=== PATIENT | male | born 1955 | race African-American/Black ===

== ENCOUNTER 2017-01-10 18:56 | Observation (INO) | payer OTHER, MEDICARE ==
[2017-01-10] MEDS ORDERED: ASPIRIN 81 MG TABLET, CHEWABLE PO ONE (19:05)
--- NOTE | 2017-01-10 19:34 | ER Document Report ---
ED Cardiac - General Chief Complaint: Chest Pain Stated Complaint: CHEST PAIN, UATSDIN PAIN Time Seen by Provider: 01/10/17 19:25 Notes: Patient is a 61 year old male that comes to the ED for chief complaint of chest pain. Patient reports that he has had chest pain almost everyday for the past week, today it worsened, started at 6 AM and resolved, then started again at dinnertime with radiations into his left neck and left shoulder. Patient denies current pain. He denies nausea, vomiting, shortness of breath. He states that he feels like he has a headache, he has pain along the left side of his head lateral to his eye, he states this is new to him. He denies injury, fever past medical history of. Hypertension, scoliosis with chronic back pain, cholecystectomy, he states he had a negative stress test many years ago, denies history of MD, denies smoking, denies family history of MD. TRAVEL OUTSIDE OF THE [place] IN LAST 30 DAYS: No - Related Data Allergies/Adverse Reactions: Sulfa (Sulfonamide Antibiotics) Allergy (Verified 07/21/14 21:14) Past Medical History - General Information source: Patient - Social History Smoking Status: Never Smoker Frequency of alcohol use: None Drug Abuse: None Lives with: Family Family History: Arthritis, DM, Hypertension, Malignancy Patient has suicidal ideation: No Patient has homicidal ideation: No - Past Medical History Cardiac Medical History: Reports: Hx Hypertension Endocrine Medical History: Reports: Hx Diabetes Mellitus Type 2 Renal/ Medical History: Denies: Hx Peritoneal Dialysis GI Medical History: Reports: Hx Gastritis Musculoskeltal Medical History: Reports Hx Arthritis, Reports Hx Musculoskeletal Trauma Past Surgical History: Reports: Hx Cholecystectomy, Hx Orthopedic Surgery - L knee - Immunizations Immunizations up to date: Yes Hx Diphtheria, Pertussis, Tetanus Vaccination: Yes Review of Systems - Review of Systems Constitutional: No symptoms reported EENT: No symptoms reported Cardiovascular: See HPI Respiratory: No symptoms reported Gastrointestinal: No symptoms reported Genitourinary: No symptoms reported Male Genitourinary: No symptoms reported Musculoskeletal: No symptoms reported Skin: No symptoms reported Hematologic/Lymphatic: No symptoms reported Neurological/Psychological: See HPI Physical Exam - Vital signs Vitals: Temp Pulse Resp BP Pulse Ox 98.3 F 103 H 18 155/89 H 97 01/10/17 19:14 01/10/17 19:14 01/10/17 19:14 01/10/17 19:14 01/10/17 19:14 Interpretation: Normal - General General appearance: Appears well, Alert In distress: None - HEENT Head: Normocephalic, Atraumatic Eyes: Normal Conjunctiva: Normal Extraocular movements intact: Yes Eyelashes: Normal Pupils: PERRL Mouth/Lips: Normal Pharynx: Normal Neck: Normal - Respiratory Respiratory status: No respiratory distress Chest status: Nontender. No: Tender Breath sounds: Normal. No: Decreased air movement, Nonproductive cough Chest palpation: Normal - Cardiovascular Rhythm: Regular. No: Tachycardia Heart sounds: Normal auscultation, S1 appreciated, S2 appreciated Murmur: No - Abdominal Inspection: Normal Distension: No distension Bowel sounds: Normal Tenderness: Nontender. No: Tender Organomegaly: No organomegaly - Back Back: Normal, Nontender. No: Tender - Extremities General upper extremity: Normal inspection, Nontender, Normal color, Normal ROM , Normal temperature General lower extremity: Normal inspection, Nontender, Normal color, Normal ROM , Normal temperature, Normal weight bearing. No: Lior's sign - Neurological Neuro grossly intact: Yes Cognition: Normal Orientation: AAOx4 Crystal Coma Scale Eye Opening: Spontaneous Crystal Coma Scale Verbal: Oriented [place] Coma Scale Motor: Obeys Commands Crystal Coma Scale Total: 15 Speech: Normal Motor strength normal: LUE, RUE, LLE, RLE Sensory: Normal - Psychological Associated symptoms: Normal affect, Normal mood - Skin Skin Temperature: Warm Skin Moisture: Dry Skin Color: Normal Course - Re-evaluation Re-evalutation: Patient reporting pain over the left latter day area with headache, ESR was checked to rule out temporal arteritis, this is normal, on reevaluation patient states the headache has resolved. EKG showing right bundle branch block, no T-wave inversions or ST segment changes in consecutive leads suggesting ischemia. Cardiac enzymes negative initially, CBC, chemistry generally unremarkable with mild hyperglycemia. On reevaluation the patient remains chest pain-free. Concerned because of patient's described symptom of pressure and chest with radiation to the neck and left shoulder in addition to history of hypertension, type 2 diabetes. Discussed with patient, discussed with Dr. Jensen, will discuss with Dr. Mcdonald for potential admission for telemetry observation. Discussed with Dr. Mcdonald, patient will be admitted to the hospital, patient states agreement with this plan. - Vital Signs Vital signs: Temp Pulse Resp BP Pulse Ox 97.7 F 72 16 144/80 H 100 01/11/17 03:05 01/11/17 03:05 01/11/17 03:05 01/11/17 03:05 01/11/17 03:05 - Laboratory Result Diagrams: 01/10/17 19:35 01/10/17 19:35 Laboratory results interpreted by me: 01/10/17 01/10/17 19:35 19:35 Hgb 12.8 L MCH 26.7 L Seg Neutrophils % 41.4 L Lymphocytes % 48.5 H Glucose 158 H Creatine Kinase 289 H Discharge - Discharge Clinical Impression: Chest pain Qualifiers: Chest pain type: unspecified Qualified Code(s): R07.9 - Chest pain, unspecified Disposition: ADMITTED OBSERVATION Admitting Provider: Hospitalist Unit Admitted: Telemetry
--- NOTE | 2017-01-10 20:06 | RADIOLOGY REPORT (SQ) ---
EXAM DESCRIPTION: CHEST SINGLE VIEW COMPLETED DATE/TIME: 01/10/2017 7:58 pm REASON FOR STUDY: cp COMPARISON: 08/02/2010. EXAM PARAMETERS: NUMBER OF VIEWS: One view. TECHNIQUE: Single frontal radiographic view of the chest acquired. RADIATION DOSE: NA LIMITATIONS: None. FINDINGS: LUNGS AND PLEURA: No opacities, masses or pneumothorax. No pleural effusion. MEDIASTINUM AND HILAR STRUCTURES: No masses. Contour normal. HEART AND VASCULAR STRUCTURES: Heart normal in size. Normal vasculature. BONES: No acute findings. HARDWARE: None in the chest. OTHER: No other significant finding. IMPRESSION: NO ACUTE RADIOGRAPHIC FINDING IN THE CHEST. TECHNICAL DOCUMENTATION: JOB ID: [id number]
[2017-01-10 20:15] LABS: ABSOLUTE EOSINOPHILS # (AUTO) 0.2 10^3/uL (0.0-0.6); ABSOLUTE MONOCYTES (AUTO) 0.6 10^3/uL (0.1-1.4); ABSOLUTE NEUT (AUTO) 3.4 10^3/uL (1.7-8.2); BASOPHILS % (AUTO) 0.4 % (0-2); EOSINOPHILS % (AUTO) 2.4 % (0-6); HEMATOCRIT 39.8 % (37.9-51.0); HEMOGLOBIN 12.8 g/dL (13.5-17.0); HGB HCT DIFFERENCE -1.4; LYMPHOCYTES % (AUTO) 48.5 % (13-45); MEAN CORPUSCULAR HEMOGLOBIN 26.7 pg (27.0-33.4); MEAN CORPUSCULAR HGB CONC 32.2 g/dL (32.0-36.0); MEAN CORPUSCULAR VOLUME 83 fl (80-97); MONOCYTES % (AUTO) 7.3 % (3-13); RED BLOOD COUNT 4.79 10^6/uL (4.35-5.55); RED CELL DISTRIBUTION WIDTH 12.7 % (11.5-14.0); SEGMENTED NEUTROPHILS % (AUTO) 41.4 % (42-78); WHITE BLOOD COUNT 8.2 10^3/uL (4.0-10.5)
[2017-01-10 20:20] LABS: PROTHROMBIN TIME 12.9 SEC (11.4-15.4)
[2017-01-10 20:25] LABS: ALANINE AMINOTRANSFERASE 40 U/L (21-72); ALBUMIN 4.2 g/dL (3.5-5.0); ALKALINE PHOSPHATASE 82 U/L (38-126); ANION GAP 12 (5-19); ASPARTATE AMINO TRANSFERASE 25 U/L (17-59); BILIRUBIN,DIRECT 0.2 mg/dL (0.0-0.4); BILIRUBIN,TOTAL 0.4 mg/dL (0.2-1.3); BLOOD UREA NITROGEN 16 mg/dL (7-20); CALCIUM 9.7 mg/dL (8.4-10.2); CARBON DIOXIDE 24 mmol/L (22-30); CHLORIDE 104 mmol/L (98-107); CREATINE KINASE 289 U/L (55-170); CREATININE RESULT 0.99 mg/dL (0.52-1.25); GLUCOSE 158 mg/dL (75-110); LIPASE 78.8 U/L (23-300); MAGNESIUM 1.7 mg/dL (1.6-2.3); SODIUM 139.6 mmol/L (137-145)
[2017-01-10 20:37] LABS: CREATINE KINASE MB 2.34 ng/mL (<4.55)
[2017-01-10 20:38] LABS: TROPONIN I < 0.012 ng/mL
[2017-01-10 20:51] LABS: ERYTHROCYTE SEDIMENTATION RATE 7 mm/hr (0-20)
[2017-01-10] MEDS ORDERED: MORPHINE SULFATE 10 MG/ML INJ IV ONE (21:13)
[2017-01-10] MEDS ORDERED: ONDANSETRON HCL INJ/PF 4 MG/2 ML SDV IV ONE (21:13)
--- NOTE | 2017-01-10 21:41 | EKG REPORT ---
SEVERITY:- ABNORMAL ECG - SINUS RHYTHM SHAR, CONSIDER BIATRIAL ABNORMALITIES RIGHT BUNDLE BRANCH BLOCK : Confirmed by: Marika Garcia 10-Jan-2017 21:40:41
[2017-01-11] MEDS ORDERED: GLUCAGON,HUMAN RECOMB 1 MG INJ IM PRN (00:41)
[2017-01-11] MEDS ORDERED: DEXTROSE 40% GEL 15 GM TUBE PO PRN ×2 (00:41)
[2017-01-11] MEDS ORDERED: ACETAMINOPHEN 325 MG TABLET PO PRN (00:41)
[2017-01-11] MEDS ORDERED: INSULIN LISPRO 100 UNIT/ML 3 ML VIAL SUBCUT PRN (00:41)
[2017-01-11] MEDS ORDERED: DEXTROSE 50%-WATER 25 GM/50 ML DISP.SYRIN IV PRN ×2 (00:41)
[2017-01-11] MEDS ORDERED: MAG HYDROX/AL HYDROX/SIMETH SUSP 30 ML UDCUP PO PRN (03:04)
[2017-01-11] MEDS ORDERED: PROMETHAZINE HCL 25 MG TABLET PO PRN (03:11)
--- NOTE | 2017-01-11 04:36 | PDOC H&P ---
History of Present Illness Admission Date/PCP: 01/11/17 00:51 [place] Patient complains of: CHEST PAIN History of Present Illness: ENZO TINSLEY is a 61 year old -E[place]ian male with underlying hypertension, having been restarted on his medication by his physician 1 month ago after normalized blood pressure with weight loss, along with a history of diabetes mellitus, no longer on medication after a 50 pound weight loss, who presents to the emergency room for evaluation of above complaint. Patient has been discussed with emergency room physician who evaluated the patient. Patient describes a one-week history of daily episodes of substernal pressure- like chest discomfort radiating to his left neck and shoulder. Intermittent throughout the day. However, over the last 24 hours or so, there is now a sharp component and pain is more pronounced. Nothing in particular makes the pain worse or better. No associated nausea vomiting or shortness of breath. No previous myocardial infarction or congestive heart failure. No history of pulmonary embolus or DVT. No recent long trip with prolonged inactivity, or unusual lower extremity swelling or tenderness. Negative exercise treadmill study in the . Family history remarkable for a sister who of a myocardial infarction at 32 years of age. Also describes recurrence of his chronic headaches, usually at least 2 per week , which he thinks are at least partly secondary to herniated disc in his neck. Currently resting quietly, chest pain-free. Laboratory results are listed in [employer] and are reviewed. X-ray summary results are listed below, with full report(s) reviewed. . EKG reviewed. No prior EKG available for comparison. Social history/personal habits: . 2 children. Retired. No use of alcohol tobacco or illicit drugs. Allergies/adverse reactions are listed in [employer] and are reviewed. Home medications initially autopopulated into [employer] may not accurately reflect patient's true medications, dosages, and/or frequencies. 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 Unfortunately, patient not certain of all medications/dosages/frequencies. He did bring his blood pressure medication bottles, lisinopril 20 mg a day, and amlodipine 10 mg a day. REVIEW OF SYSTEMS: Constitutional: No fever or chills. Eyes: Wears glasses. ENT: No swallowing problems or complaints. Partial hearing loss. Pulmonary: No current complaints. Cardiovascular: See history and present illness. Gastrointestinal: No current complaints, including nausea or vomiting. Skin: No current complaints, including rashes. Hematologic: Easy bruising. Neurologic: See history and present illness. Musculoskeletal: Chronic joint pain from arthritis. Psychiatric: Anxiety and depression. Denies suicidal or homicidal ideation. Endocrine: No current complaints, including polyuria. Genitourinary: No current complaints, including dysuria. PHYSICAL EXAMINATION: 6 feet 5 inches tall. 128.6 kg. BMI 33.6 kg/m. Blood pressure 144/80. Pulse 72 and regular. Respirations are 16 and unlabored. 100% saturation on room air. Temperature 98.3. Somewhat obese but also somewhat stocky otherwise well-developed - [place] male appearing approximately his stated age. Pleasant awake alert and cooperative. Somewhat fatigued appearance. Perhaps mildly anxious, but no agitation. is present at his side; patient approves. Skin is warm and dry. No grossly obvious evidence of rash in areas of skin examined. No subcutaneous nodules palpated. ENT: Hearing grossly normal to normal conversation. Tongue midline on protrusion pink and slightly tacky. Eyes: No scleral icterus. Pupils equal and reactive to light at 4 mm. Villanueva conjunctivae. Neck is supple and nontender to gentle active range of motion and palpation. Midline trachea. No palpable thyroid nodule mass enlargement or tenderness. Lymphatic: No palpable cervical or clavicular nodes. Neck and lymphatic exams limited by patient body habitus. Psychiatric: Reasonable insight into acute and chronic medical issues. Oriented to time location and why here. Lungs: Auscultation reveals clear and equal breath sounds bilaterally. No use of accessory respiratory muscles. Cardiovascular: Heart regular rate and rhythm, without gallop murmur or rub. No carotid or abdominal aortic bruits. No ankle or pedal edema. Faintly palpable dorsalis pedis pulses. Abdomen:soft slightly obese nontender with positive bowel sounds. Unable to adequately evaluate abdomen for masses or organomegaly due to body habitus. Compression of neither his sternum nor upper abdomen reproduces his previously noted chest discomfort. Extremities: Feet are warm and dry. No calf tenderness to compression. No grossly obvious visual evidence of calf swelling. Gentle manipulation of lower extremities fails to reveal any obvious evidence of injury or instability to knees hips or ankles. Neurologic: Moves upper extremities grossly normally. Patellar reflexes absent. Absent Babinski. Light touch is intact at feet. Dorsiflexion and plantarflexion of feet 5 / 5 and symmetric. Past Medical History Cardiac Medical History: Reports: Hypertension Denies: Congestive Heart Failure, DVT, Myocardial Infarction, Hyperlipidema, Pulmonary Embolism Pulmonary Medical History: Reports: Sleep Apnea - Suspected sleep apnea; more tests are to be scheduled in the near future. Denies: Asthma, Chronic Obstructive Pulmonary Disease (COPD) EENT Medical History: Reports: Eyes - Glasses, Ears - Partial hearing loss Denies: Throat Neurological Medical History: Denies: Hemorrhagic CVA, Ischemic CVA, Seizures Endocrine Medical History: Reports: Diabetes Mellitus Type 2 - No longer on medication for same, after 50 pound weight loss. Denies: Diabetes Mellitus Type 1, Hyperthyroidism, Hypothyroidism Renal/ Medical History: Reports: None GI Medical History: Reports: Gastroesophageal Reflux Disease - Mild occasional Denies: Cirrhosis, Hepatitis, Peptic Ulcer Disease Musculoskeltal Medical History: Reports: Arthritis Skin Medical History: Reports: Eczema Psychiatric Medical History: Reports: Depression, General Anxiety Disorder Denies: Alcohol Dependency, Substance Abuse, Tobacco Dependency Hematology: Reports: Other - Easy bruising Infectious Medical History: Denies: Clostridium Difficile, Hepatitis B, Hepatitis C, Methicillin- Resistant Staph Aureus Past Surgical History Past Surgical History: Reports: Cholecystectomy, Orthopedic Surgery - Bilateral knee surgery, Other - Vasectomy Social History Information Source: Patient, Emergency Med Personnel, [facility] Records Lives with: Spouse/Significant other Smoking Status: Unknown if Ever Smoked Frequency of Alcohol Use: None Drugs: None - Advance Directive Resuscitation Status: Full Code Surrogate healthcare decision maker:: Family History Family History: Arthritis, DM, Hypertension, Malignancy Parental Family History Reviewed: Yes - Mother of stomach cancer; father of brain tumor. Children Family History Reviewed: Yes - Daughter with headaches. Sibling(s) Family History Reviewed.: Yes - 11 children; 6 surviving. Medication/Allergy Home Medications: Acetaminophen [Tylenol Arthritis 650 mg Tablet] 650 mg PO ASDIR PRN 01/11/17 Amlodipine Besylate [Norvasc 10 mg Tablet] 10 mg PO DAILY 01/11/17 Amlodipine Besylate [Norvasc 10 mg Tablet] 10 mg PO DAILY tablet 01/11/17 Aspirin [Ecotrin 81 mg EC Tablet] 81 mg PO DAILY tabec 01/11/17 Atorvastatin Calcium [Lipitor 20 mg Tablet] 20 mg PO QHS #30 tablet 01/11/17 Hydroxyzine Pamoate [Vistaril 25 mg Capsule] 100 mg PO QHS 01/11/17 Lansoprazole [Prevacid 30 mg Odt Tablet] 30 mg PO Q6AM tab 01/11/17 Lisinopril [Prinivil 10 mg Tablet] 20 mg PO DAILY tablet 01/11/17 Lisinopril [Prinivil] 20 mg PO DAILY 01/11/17 Allergies/Adverse Reactions: Sulfa (Sulfonamide Antibiotics) Allergy (Verified 07/21/14 21:14) Physical Exam Vital Signs: Temp Pulse Resp BP Pulse Ox 98.3 F 103 H 16 156/85 H 100 01/10/17 19:14 01/10/17 19:14 01/11/17 01:01 01/11/17 01:01 01/11/17 01:01 Results Impressions: Chest X-Ray 01/10/17 19:05 IMPRESSION: NO ACUTE RADIOGRAPHIC FINDING IN THE CHEST. Assessment & Plan - Diagnosis (1) Chest pain Qualifiers: Chest pain type: unspecified Qualified Code(s): R07.9 - Chest pain, unspecified Is this a current diagnosis for this admission?: YesPlan: Patient will be placed in observation bed under chest pain protocol. Patient understands to notify staff should chest pain recur. Serial troponin . Repeat EKG. lipid panel. I have strongly encouraged patient to be careful getting out of bed without notifying staff, to avoid a fall with injury. Knee high SCDs for DVT prophylaxis, along with subcu Lovenox. Impression and plans were discussed with patient and , both of whom concur. Time spent in evaluation and management of patient: 61 minutes. (2) HTN (hypertension) Qualifiers: Hypertension type: essential hypertension Qualified Code(s): I10 - Essential (primary) hypertension Is this a current diagnosis for this admission?: YesPlan: Resume home medications as appropriate once these have been determined and reviewed. (4) Headache Qualifiers: Headache type: unspecified Headache chronicity pattern: chronic headache Intractability: not intractable Qualified Code(s): R51 - Headache Is this a current diagnosis for this admission?: YesPlan: As needed Tylenol. (5) History of diabetes mellitus, type II Is this a current diagnosis for this admission?: YesPlan: Diabetic cardiac diet. Accu-Cheks with appropriate sliding scale coverage.
[2017-01-11] MEDS ORDERED: LANSOPRAZOLE 30 MG TAB.RAP.DR PO SCH (06:00)
[2017-01-11 06:51] LABS: Direct HDL 43 mg/dL (>40); TRIGLYCERIDES 256 mg/dL (<150)
[2017-01-11 07:01] LABS: DIRECT LDL 113 mg/dL (<100)
[2017-01-11 07:03] LABS: VLDL CHOLESTEROL 51.2 mg/dL (10-31)
[2017-01-11] MEDS ORDERED: LISINOPRIL 10 MG TABLET PO SCH (10:00)
[2017-01-11] MEDS ORDERED: ENOXAPARIN SODIUM INJ 40 MG/0.4 ML DISP.SYRIN SUBCUT SCH (10:00)
[2017-01-11] MEDS ORDERED: AMLODIPINE BESYLATE 10 MG TABLET PO SCH (10:00)
[2017-01-11] MEDS ORDERED: DOCUSATE SODIUM 100 MG CAPSULE PO SCH (10:00)
[2017-01-11] MEDS ORDERED: ASPIRIN 81 MG TABLET, ENT COATED PO SCH (10:00)
[2017-01-11 10:28] VITALS: BP 144/80
--- NOTE | 2017-01-11 14:09 | PDOC DISCHARGE SUMMARY ---
General - Admit/Disc Date/PCP Admission Date/Primary Care Provider: 01/11/17 03:04 BAY CASTELLON NP Discharge Date: 01/11/17 - Discharge Diagnosis (1) Chest pain Is this a current diagnosis for this admission?: YesSummary: atypical chest pain, no clear etiology, possibly related to poorly controlled hTN but most likely MSK it seems. he r/o'd for acute ischemia with neg enzymes and no acute ischemic changes on ecg though he does have RBBB its unclear of the chronicity. nevertheless, he is chest pain free without recurrence since his admission and would like to go home. his SANDY score is only 2 and HEART score 3 based on age, HTN, hyperlipidemia and nonspecific changes on ecg putting him in the low risk category. I recommend maximizing his Rx mgt and counseled regarding diet and lifestyle changes including low fat, low chol diet and aerobic exercise 3x week. he should start ASA for primary prevention, statin for his lipids, and continue home regimen for control of his BP checking 1-2/day and [facility] to optimize his regimen. consider change to beta marleni from ccb if possible for its cardioprotective effects. (2) HTN (hypertension) Is this a current diagnosis for this admission?: YesSummary: poorly controlled, goal is <125/85; treat as above (3) Headache Is this a current diagnosis for this admission?: YesSummary: chronic and cluster in nature, likely related to stress of the event. treat with tylenol and seek medical attention if worsens (4) Hyperlipidemia Is this a current diagnosis for this admission?: YesSummary: new; start statin - Additional Information Resuscitation Status: Full Code Discharge Diet: Cardiac Discharge Activity: Activity As Tolerated Home Medications: Acetaminophen [Tylenol Arthritis 650 mg Tablet] 650 mg PO ASDIR PRN 01/11/17 Amlodipine Besylate [Norvasc 10 mg Tablet] 10 mg PO DAILY 01/11/17 Amlodipine Besylate [Norvasc 10 mg Tablet] 10 mg PO DAILY tablet 01/11/17 Aspirin [Ecotrin 81 mg EC Tablet] 81 mg PO DAILY tabec 01/11/17 Atorvastatin Calcium [Lipitor 20 mg Tablet] 20 mg PO QHS #30 tablet 01/11/17 Hydroxyzine Pamoate [Vistaril 25 mg Capsule] 100 mg PO QHS 01/11/17 Lansoprazole [Prevacid 30 mg Odt Tablet] 30 mg PO Q6AM tab.[email or web address]. 01/11/17 Lisinopril [Prinivil 10 mg Tablet] 20 mg PO DAILY tablet 01/11/17 Lisinopril [Prinivil] 20 mg PO DAILY 01/11/17 History of Present Illness History of Present Illness: ENZO TINSLEY is a 61 year old male Hospital Course Hospital Course: ENZO TINSLEY is a 61 year old -[place] male with underlying hypertension, having been restarted on his medication by his physician 1 month ago after normalized blood pressure with weight loss, along with a history of diabetes mellitus, no longer on medication after a 50 pound weight loss, who presents to the emergency room for evaluation of above complaint. Patient describes a one-week history of daily episodes of substernal pressure-like chest discomfort radiating to his left neck and shoulder. Intermittent throughout the day. However, over the last 24 hours or so, there is now a sharp component and pain is more pronounced. Nothing in particular makes the pain worse or better. No associated nausea vomiting or shortness of breath. No previous myocardial infarction or congestive heart failure. No history of pulmonary embolus or DVT. No recent long trip with prolonged inactivity, or unusual lower extremity swelling or tenderness. Negative exercise treadmill study in the . Family history remarkable for a sister who of a myocardial infarction at 32 years of age. Also describes recurrence of his chronic headaches, usually at least 2 per week, which he thinks are at least partly secondary to herniated disks in his neck. Currently resting quietly, chest pain-free. admitted to the hospital and r/o'd for acute ischemia with negative enzymes and only RBBB on ecg, unclear chronicity. he was chest pain free throughout his hospitalization and wants to go home. His SANDY and HEART scores indicate low risk and discussed diet and lifestyle modifications and maximizing medical management including ASA for primary prevention. He should return to the ED for recurrent or escalating symptoms at which time he will need stress testing and cardio consult for further risk stratification. he is stable for d/c home at this time and expresses no concerns about going home. all questions asked and answered to he and his 's satisfaction, he seems satisfied with the care received here. Physical Exam Vital Signs: Temp Pulse Resp BP Pulse Ox 97.6 F 81 18 144/80 H 97 01/11/17 10:25 01/11/17 10:25 01/11/17 10:25 01/11/17 10:25 01/11/17 10:25 Intake & Output 01/10/17 01/11/17 01/12/17 06:59 06:59 06:59 Intake Total 0 Balance 0 Weight 123.7 kg General appearance: PRESENT: no acute distress, obese, well-developed, well- nourished Head exam: PRESENT: atraumatic, normocephalic, other - palpation over the temporal muscle and bone on left reproduces his MAHAN pain Eye exam: PRESENT: EOMI, PERRLA. ABSENT: conjunctival injection, nystagmus, scleral icterus Mouth exam: PRESENT: moist, neck supple Neck exam: PRESENT: full ROM. ABSENT: carotid bruit, JVD, meningismus, tenderness Respiratory exam: PRESENT: clear to auscultation samina. ABSENT: accessory muscle use Cardiovascular exam: PRESENT: RRR. ABSENT: systolic murmur Pulses: PRESENT: normal radial pulses GI/Abdominal exam: PRESENT: soft, other - no abd bruit Musculoskeletal exam: PRESENT: ambulatory, full ROM Neurological exam: PRESENT: alert, awake, oriented to person, oriented to place , oriented to time, oriented to situation Psychiatric exam: PRESENT: appropriate affect, normal mood Results Laboratory Results: 01/11/17 06:15 Triglycerides 256 H Cholesterol 206.40 H LDL Cholesterol Direct 113 H VLDL Cholesterol 51.2 H HDL Cholesterol 43 01/11/17 06:15 Troponin I < 0.012 Impressions: Chest X-Ray 01/10/17 19:05 IMPRESSION: NO ACUTE RADIOGRAPHIC FINDING IN THE CHEST. Qualifiers PATEINT BEING DISCHARGED WITH ANY OF THE FOLLOWING DIAGNOSIS?: No VTE patient discharged on overlapping Therapy?: No Reason(s) for not prescribing Overlap Therapy:: Not indicated Plan Discharge Plan: dc home and f/u with PCP in one week for BP ck and med titration; return to the ED for worsening symptoms Time Spent: Greater than 30 Minutes
== END 2017-01-11 11:03 | disposition home or self-care (01) ==
LOC: ER 18:56 → EH 01-11 00:51 → UNDOADMOB 01-11 00:51 → 4S 01-11 02:10 → EH 01-11 02:10 → 4S 01-11 03:04 → EH 01-11 03:04
PROVIDERS: ADMIT Family Medicine; ATTEND Family Medicine
DX: R07.89 Other chest pain (principal); I45.10 Unspecified right bundle-branch block; I10 Essential (primary) hypertension; E78.5 Hyperlipidemia, unspecified; G44.029 Chronic cluster headache, not intractable; E11.9 Type 2 diabetes mellitus without complications; M50.20 Other cervical disc displacement, unspecified cervical region; M19.90 Unspecified osteoarthritis, unspecified site; F41.1 Generalized anxiety disorder; F32.9 Major depressive disorder, single episode, unspecified; M41.9 Scoliosis, unspecified; Z79.899 Other long term (current) drug therapy; Z90.49 Acquired absence of other specified parts of digestive tract; Z82.49 Family history of ischemic heart disease and other diseases of the circulatory system; Z82.0 Family history of epilepsy and other diseases of the nervous system
CPT/HCPCS: 93005; 99285; 96374; 96375; 36415 ×2; 82553; 82962; 82550; 83690; 83735; 85025; 85652; 85610; 80053; 84484 ×2; 80061; 71010; 93010; G0378; J2270; J3490; J2405

== ENCOUNTER → 2018-01-07 | Outpatient (CLI) | payer OTHER ==
[~2018-01-07] MED LIST: DIAZEPAM 5 MG TABLET ONE
--- NOTE | 2018-01-07 13:28 | RADIOLOGY REPORT (SQ) ---
EXAM DESCRIPTION: MRI LUMBAR SPINE WITHOUT COMPLETED DATE/TIME: 01/07/2018 11:45 am REASON FOR STUDY: LOW BACK PAIN (M54.5) M54.5 LOW BACK PAIN COMPARISON: None. TECHNIQUE: Sagittal and Axial imaging includes T1, T2, STIR and gradient echo sequences. Coronal T2/ HASTE imaging. LIMITATIONS: None. FINDINGS: VISUALIZED UPPER ABDOMEN: Limited evaluation. No acute or suspicious findings suggested. SEGMENTATION: No transitional anatomy. The lowest well-developed disc space is labeled L5-S1. ALIGNMENT: Anatomic. VERTEBRAE: Intact. BONE MARROW: Fatty reactive vertebral body and peak changes at L5-S1 DISC SIGNAL: Decreased T2 weighted intervertebral disc signal from L3-4 through L5-S1. High-grade di sc space loss of height at L5-S1. POSTERIOR ELEMENTS: Generally intact. No pars defect evident. HARDWARE: None in the spine. CORD AND CONUS: Normal in size and signal intensity. Conus at the T12-L1 level. SOFT TISSUES: No aortic aneurysm seen. No bulky retroperitoneal adenopathy or mass. No paraspinal mas s or fluid. T11-12: Mild bilateral facet hypertrophy with mild bilateral foraminal narrowing. No central stenos is. T12-L1: Unremarkable L1-L2: Mild bilateral facet hypertrophy. No central or foraminal stenosis. L2-L3: Moderate bilateral facet hypertrophy. No central or foraminal stenosis. L3-L4: High-grade central canal stenosis results from broad diffuse posterior disc bulging and very b ulky bilateral facet and ligament hypertrophy. There is effacement of the CSF around the lumbar nerv e roots on axial T2 image 19 and sagittal image 9. Elsewhere at L3-4 there is moderate bilateral foraminal narrowing without exiting L3 nerve root impin gement. L4-L5: Broad diffuse posterior disc bulging and moderate bilateral facet and ligament hypertrophy. B orderline central canal narrowing best shown on axial T2 image 26. There is mild bilateral foraminal narrowing without exiting L4 nerve root impingement. L5-S1: No central stenosis. Moderate right, mild left foraminal narrowing from facet and uncovertebr al hypertrophy. SACRUM: Visualized upper sacrum intact. OTHER: No other significant findings. IMPRESSION: High-grade central canal stenosis at L3-4 TECHNICAL DOCUMENTATION: JOB ID: [id number] [employer]- All Rights Reserved Reading location - IP/workstation name: [email or web address]
== END ==
LOC: RAD 09:19
PROVIDERS: ATTEND Nurse Practitioner Family
DX: M54.5 Low back pain (principal)
CPT/HCPCS: 72148

== ENCOUNTER → 2019-05-04 | Outpatient (CLI) | payer OTHER ==
--- NOTE | 2019-05-05 15:06 | RADIOLOGY REPORT (SQ) ---
EXAM DESCRIPTION: MRI LT UPPER JOINT WITHOUT COMPLETED DATE/TIME: 05/04/2019 1:05 pm REASON FOR STUDY: BILATERAL SHOULDER PAIN M25.519 PAIN IN UNSPECIFIED SHOULDER COMPARISON: None. TECHNIQUE: Left shoulder images acquired and stored on PACS. Multiplanar imaging to include fat sens itive sequences such as T1, water sensitive sequences such as FST2/STIR, cartilage sensitive sequence s such as FSPD/gradient-echo sequences. LIMITATIONS: None. FINDINGS: BONE MARROW AND CORTEX: No worrisome bone lesions or marrow replacement. No occult fractur es. JOINT OR BURSAL EFFUSION: Physiologic joint space fluid. Trace fluid in the subacromial/ subdeltoid bursa GLENO-HUMERAL ARTICULATION: Advanced osteoarthritis with [id number] appearance and bony spurring. High-riding humeral head abuts the undersurface of the acromion through a chronic rotator cuff tear. ACROMION AND AC JOINT: Type 2 acromion with bulky acromioclavicular joint hypertrophy narrowing the subacromial space best shown on sagittal image 10 and coronal image 12 ROTATOR CUFF AND INTERVAL: Chronic appearing diffuse full-thickness tear throughout the supra and inf raspinatus tendons. Muscle atrophy on sagittal image 19. Distal subscapularis is thickened and high in signal from tendinopathy. No rotator interval tear. No rotator interval thickening to suggest adhesive capsulitis. LABRUM AND BICEPS LABRAL COMPLEX: Intra-articular long head biceps tendon is markedly thickened fro m tendinopathy. Superior labrum diffusely small from chronic degeneration. REMAINDER OF LABRUM AND IGHL : No gross tear or paralabral cyst formation. Labral evaluation is less than optimal without joint distention. No thickening of IGHL to suggest adhesive capsulitis. PERIARTICULAR AND ADJACENT SOFT TISSUES: No masses or abnormal nodes. OTHER: No other significant finding. IMPRESSION: Chronic rotator cuff tear Bulky acromioclavicular joint hypertrophy Intra-articular long head biceps tendinopathy TECHNICAL DOCUMENTATION: JOB ID: [id number]- All Rights Reserved Reading location - IP/workstation name: [email or web address]
--- NOTE | 2019-05-05 15:10 | RADIOLOGY REPORT (SQ) ---
EXAM DESCRIPTION: MRI RT UPPER JOINT WITHOUT COMPLETED DATE/TIME: 05/04/2019 1:05 pm REASON FOR STUDY: BILATERAL SHOULDER PAIN M25.519 PAIN IN UNSPECIFIED SHOULDER COMPARISON: None. TECHNIQUE: Right shoulder images acquired and stored on PACS. Multiplanar imaging to include fat sen sitive sequences such as T1, water sensitive sequences such as FST2/STIR, cartilage sensitive sequenc es such as FSPD/gradient-echo sequences. LIMITATIONS: None. FINDINGS: BONE MARROW AND CORTEX: No worrisome bone lesions or marrow replacement. No occult fractur es. JOINT OR BURSAL EFFUSION: Joint space fluid is present, communicating with the subacromial/subdeltoid bursa through a large defect in the rotator cuff GLENO-HUMERAL ARTICULATION: Advanced osteoarthritis right glenohumeral joint, with joint space narrow ing and bony spurring. ACROMION AND AC JOINT: Type 2 acromion with very bulky acromioclavicular joint hypertrophy on sagitta l image 13 and coronal image 10. Narrowing of the subacromial space with fluid in the subacromial/randolph bdeltoid bursa. ROTATOR CUFF AND INTERVAL: Diffuse full-thickness tear throughout the supra and infraspinatus tendons with muscle atrophy on sagittal image 19. Distal subscapularis tendon is markedly thickened. Rotator interval tear is present. LABRUM AND BICEPS LABRAL COMPLEX: Massive thickening of the intra-articular long head biceps tendon from tendinopathy on axial images 9-15. Diffusely small superior labrum from degeneration. No larg e para labral cysts. REMAINDER OF LABRUM AND IGHL : No gross tear or paralabral cyst formation. Labral evaluation is less than optimal without joint distention. No thickening of IGHL to suggest adhesive capsulitis. PERIARTICULAR AND ADJACENT SOFT TISSUES: No masses or abnormal nodes. OTHER: No other significant finding. IMPRESSION: Chronic full-thickness tear throughout the supra and infraspinatus tendons. Tendinopathy distal subscapularis tendon. Tendinopathy intra-articular long head biceps tendon. TECHNICAL DOCUMENTATION: JOB ID: [id number] [employer]- All Rights Reserved Reading location - IP/workstation name: [email or web address]
== END ==
LOC: RAD 10:06
PROVIDERS: ATTEND Nurse Practitioner Family
DX: M25.512 Pain in left shoulder (principal); M25.511 Pain in right shoulder

== ENCOUNTER 2019-11-20 01:36 | Emergency (ER) | payer OTHER ==
[2019-11-20] MEDS ORDERED: NORMAL SALINE 1000 ML 1,000 ML IV ONE ×2 (02:03→05:50)
[2019-11-20] MEDS ORDERED: MORPHINE SULFATE 10 MG/ML INJ IV ONE (02:03)
[2019-11-20] MEDS ORDERED: ONDANSETRON HCL INJ/PF 4 MG/2 ML SDV IV ONE (02:03)
--- NOTE | 2019-11-20 02:07 | ER Document Report ---
ED General - General Chief Complaint: Shortness Of Breath Stated Complaint: SHORTNESS OF BREATH Time Seen by Provider: 11/20/19 01:49 Primary Care Provider: ALBA NOGUEIRA FNP [Primary Care Provider] - 11/20/19 Notes: Patient is a 64-year-old male that comes to the emergency department for chief complaint of productive cough, painful cough, and coughing up small amount of blood. Patient also states that he keeps getting episodes where he is continuous hiccups. Patient is postop left rotator cuff repair at [place] last Saturday (1 week ago), he states he was discharged on Saturday with diagnosis of postop pneumonia and on azithromycin. He states that he purchased a nebulizer today because he was prescribed nebulized medication, he states that afterwards he had a productive cough and coughed up a large amount of mucus on 2 separate occasions, on the second occasion he states he saw some blood mixed in and he be came concerned. He does report some shortness of breath. He states he was told he had COPD by [place], he is a former smoker, he has never used nebulizers before today. He is on aspirin but not on a blood thinner. He denies history of pulmonary embolism. He denies chest pain other than the coughing episodes, he denies any concerns in regards to the shoulder, he takes oxycodone as needed for this. He denies any cardiac history including ND or CHF. He does have a history of hypertension and diabetes. TRAVEL OUTSIDE OF THE [place] IN LAST 30 DAYS: No - Related Data Allergies/Adverse Reactions: Sulfa (Sulfonamide Antibiotics) Allergy (Unknown, Verified 11/03/18 12:20) SKIN TEST REACTION Past Medical History - General Information source: Patient - Social History Smoking Status: Former Smoker Drug Abuse: None Lives with: Family Family History: Arthritis, DM, Hypertension, Malignancy - Past Medical History Cardiac Medical History: Reports: Hx Hypertension Denies: Hx Congestive Heart Failure, Hx DVT, Hx Heart Attack, Hx Hypercholesterolemia, Hx Pulmonary Embolism Pulmonary Medical History: Reports: Hx Sleep Apnea - Suspected sleep apnea; more tests are to be scheduled in the near future. Denies: Hx Asthma, Hx COPD Neurological Medical History: Denies: Hx Cerebrovascular Accident, Hx Seizures Endocrine Medical History: Reports: Hx Diabetes Mellitus Type 2 - No longer on medication for same, after 50 pound weight loss.. Denies: Hx Diabetes Mellitus Type 1, Hx Hyperthyroidism, Hx Hypothyroidism Renal/ Medical History: Denies: Hx Peritoneal Dialysis GI Medical History: Reports: Hx Gastritis, Hx Gastroesophageal Reflux Disease - Mild occasional. Denies: Hx Cirrhosis, Hx Hepatitis, Hx Hiatal Hernia, Hx Ulcer Musculoskeletal Medical History: Reports Hx Arthritis, Reports Hx Musculoskeletal Trauma Skin Medical History: Reports Hx Eczema Psychiatric Medical History: Reports: Hx Depression Infectious Medical History: Denies: Hx C-Diff, Hx Hepatitis, Hx MRSA Past Surgical History: Reports: Hx Cholecystectomy, Hx Orthopedic Surgery - Bi lateral knee surgery, Other - Vasectomy. Denies: Hx Open Heart Surgery, Hx Pacemaker - Immunizations Immunizations up to date: Yes Hx Diphtheria, Pertussis, Tetanus Vaccination: Yes Review of Systems - Review of Systems Constitutional: See HPI EENT: No symptoms reported Cardiovascular: See HPI Respiratory: See HPI Gastrointestinal: See HPI Genitourinary: No symptoms reported Male Genitourinary: No symptoms reported Musculoskeletal: See HPI Skin: No symptoms reported Hematologic/Lymphatic: No symptoms reported Neurological/Psychological: No symptoms reported Physical Exam - Vital signs Vitals: Temp Pulse Resp BP Pulse Ox 98.4 F 115 H 20 160/79 H 95 11/20/19 01:41 11/20/19 01:41 11/20/19 01:41 11/20/19 01:41 11/20/19 01:41 - Notes Notes: GENERAL: Alert, interacts well. HEAD: Normocephalic, atraumatic. EYES: Pupils equal, round, and reactive to light. Extraocular movements intact. ENT: Oral mucosa dry, tongue midline. Oropharynx unremarkable. Airway patent. NECK: Full range of motion. Supple. Trachea midline. No lymphadenopathy. LUNGS: Clear to auscultation bilaterally, no wheezes, rales, or rhonchi. No respiratory distress. Occasional episodes of coughing. HEART: Tachycardia, normal rhythm, no murmur ABDOMEN: Soft, non-tender. Non-distended. Intermittent episodes of hiccuping. EXTREMITIES: Shoulder immobilizer in place extending all the way up the arm, this is on the left arm/shoulder. Patient has full range of motion of the fingers, normal sensation and capillary fill, no noted swelling. Otherwise unremarkable. BACK: no cervical, thoracic, lumbar midline tenderness. No saddle anesthesia, normal distal neurovascular exam. Moves all extremities in full range of motion. NEUROLOGICAL: Alert and oriented x3. Normal speech. Cranial nerves II through XII grossly intact. Strength 5/5 in all extremities. PSYCH: Normal affect, normal mood. Course - Re-evaluation Re-evalutation: Patient has congested cough on exam intermittently, intermittently has hiccups. He also states that when he tries to eat something now he either starts coughing or hiccuping. Patient has clear lungs, no tachypnea, no hypoxia, he is borderline tachycardic. Chest x-ray shows possible left lower lobe atelectasis versus pneumonia. CBC shows leukocytosis at 17,000 with elevation of neutrophils but no bandemia. Chemistry nonspecific with glucose greater than 300 but no acidosis. Venous blood gas is unremarkable without acidosis. Troponin is negative, EKG nonspecific. CTA will be performed to help clarify pneumonia and because patient is postoperative with hemoptysis and borderline tachycardia. CTA shows no large pulmonary embolus, suboptimal bolus for smaller pulmonary emboli. Atelectasis noted, no overt pneumonia or other abnormality noted. Blood cultures are pending. 11/20/19 05:[address] Gregory. Recommendation is GI cocktail, IV fluids, p.o. trial, COVID-19 testing. If patient does well with this patient can be discharged with symptom management and follow-up with his primary provider and surgeon, calling them today. After GI cocktail patient started having continuous hiccups again and was unable to tolerate any additional nourishment by mouth. He is having epigastric discomfort. Heart rate is 105 after IV fluids. 11/20/19 07:55 Handoff given to eMle Infante. Dr. Rea's recommendation is IV Compazine, p.o. trial and reevaluation. Nursing staff updated as well. - Vital Signs Vital signs: Temp Pulse Resp BP Pulse Ox 98.4 F 115 H 20 160/79 H 96 11/20/19 04:39 11/20/19 01:41 11/20/19 01:41 11/20/19 01:41 11/20/19 03:37 - Laboratory Result Diagrams: 11/20/19 02:30 11/20/19 02:30 Laboratory results interpreted by me: 11/20/19 11/20/19 11/20/19 02:30 02:30 02:46 WBC 17.6 H Hgb 12.7 L Seg Neuts % (Manual) 83 H Abs Neuts (Manual) 14.6 H VBG pH 7.44 H Sodium 133.5 L Chloride 94 L BUN 35 H Glucose 363 H - EKG Interpretation by Me Additional EKG results interpreted by me: EKG shows sinus tachycardia at a rate of 111, QTc 528, right bundle branch block. Somewhat peaked T waves anteriorly. No T wave inversions or ST segment changes in consecutive leads. Discharge - Discharge Clinical Impression: Productive cough, Hiccups, Hyperglycemia, Post-op pneumonia Condition: Stable Disposition: HOME, SELF-CARE Referrals: ALBA NOGUEIRA FNP [Primary Care Provider] - 11/20/19
[2019-11-20 03:02] LABS: VENOUS BLOOD BASE EXCESS 2.2 mmol/L; VENOUS BLOOD HCO3 26.4 mmol/L (20-32); VENOUS BLOOD PCO2 39.8 mmHg (35-63); VENOUS BLOOD PH 7.44 (7.30-7.42)
[2019-11-20 03:07] LABS: ALBUMIN 3.9 g/dL (3.5-5.0); ALKALINE PHOSPHATASE 75 U/L (38-126); ANION GAP 14 (5-19); ASPARTATE AMINO TRANSFERASE 21 U/L (17-59); BILIRUBIN,DIRECT 0.2 mg/dL (0.0-0.4); BILIRUBIN,TOTAL 0.8 mg/dL (0.2-1.3); BLOOD UREA NITROGEN 35 mg/dL (7-20); CALCIUM 9.4 mg/dL (8.4-10.2); CARBON DIOXIDE 26 mmol/L (22-30); CHLORIDE 94 mmol/L (98-107); GLUCOSE 363 mg/dL (75-110); POTASSIUM 4.4 mmol/L (3.6-5.0); TOTAL PROTEIN 6.9 g/dL (6.3-8.2)
[2019-11-20 03:13] LABS: HEMATOCRIT 38.9 % (37.9-51.0); HEMOGLOBIN 12.7 g/dL (13.5-17.0); MEAN CORPUSCULAR HEMOGLOBIN 27.5 pg (27.0-33.4); MEAN CORPUSCULAR HGB CONC 32.7 g/dL (32.0-36.0); MEAN CORPUSCULAR VOLUME 84 fl (80-97); RED BLOOD COUNT 4.62 10^6/uL (4.35-5.55); RED CELL DISTRIBUTION WIDTH 13.7 % (11.5-14.0); WHITE BLOOD COUNT 17.6 10^3/uL (4.0-10.5)
[2019-11-20 03:42] LABS: ABSOLUTE LYMPHOCYTES# (MANUAL) 2.3 10^3/uL (0.5-4.7); ABSOLUTE MONOCYTES # (MANUAL) 0.7 10^3/uL (0.1-1.4); BASOPHILS % (MANUAL) 0 % (0-2); EOSINOPHILS % (MANUAL) 0 % (0-6); LYMPHOCYTES % (MANUAL) 13 % (13-45); MONOCYTES % (MANUAL) 4 % (3-13); SEGMENTED NEUTROPHILS % (MAN) 83 % (42-78); TOTAL CELLS COUNTED 100
[2019-11-20 03:46] LABS: PLATELET CLUMPS PRESENT; PLATELET COMMENT ADEQUATE; PLATELET LARGE PRESENT; TOXIC GRANULATION SLIGHT
[2019-11-20 03:47] LABS: PLATELET COUNT 302 10^3/uL (150-450)
--- NOTE | 2019-11-20 04:01 | RADIOLOGY REPORT (SQ) ---
CHEST 1 VIEW on 11/20/2019 at 3:03 AM CLINICAL INDICATION: Productive cough, recent pneumonia COMPARISON: 01/10/2017 FINDINGS: There is mild elevation of the left hemidiaphragm. There is adjacent left basilar opacity that may represent atelectasis and/or scarring but cannot exclude component of pneumonia. Lungs are otherwise clear. Heart is upper limits normal for size. Pulmonary vascularity is within normal limits. The patient is status post a left shoulder arthroplasty. IMPRESSION: Left basilar opacity that may represent atelectasis or scarring but cannot exclude component of a pneumonia.
--- NOTE | 2019-11-20 05:21 | RADIOLOGY REPORT (SQ) ---
CT angiogram chest with contrast on 11/20/2019 at 4:25 AM CLINICAL INDICATION: Shortness of breath, hemoptysis, postop, tachycardia TECHNIQUE: Multiple axial images are obtained throughout the chest following the administration of IV contrast. Computer generated 3D reconstructions/MIPS were performed. This exam was performed according to our departmental dose-optimization program, which includes automated exposure control, adjustment of the mA and/or kV according to patient size and/or use of iterative reconstruction technique. Total DLP is 1651.2 mGy*cm. COMPARISON: CT abdomen and lower chest from 10/09/2014 FINDINGS: The patient is status post a left shoulder reverse arthroplasty. There is air in the left chest and left shoulder soft tissues consistent with this being a recent surgery. There is no thoracic aortic aneurysm or dissection. There is no pleural or pericardial effusion. Limited visualized upper abdomen is unremarkable. There is no thoracic adenopathy. Bolus timing is suboptimal for evaluation of pulmonary embolus but no definite filling defects are noted in the pulmonary arteries to suggest pulmonary emboli. There is mild left lower lung atelectasis. Minimal linear atelectasis or scarring is noted in the lingula. The lungs are otherwise clear. Degenerative changes are noted in the spine. IMPRESSION: 1. Bolus timing is suboptimal for evaluation of pulmonary embolus but no definite pulmonary emboli are noted. 2. Mild left lower lung atelectasis.
[2019-11-20] MEDS ORDERED: MAG HYDROX/AL HYDROX/SIMETH SUSP 30 ML UDCUP PO ONE (05:58)
[2019-11-20] MEDS ORDERED: LIDOCAINE 2% VISCOUS SOLN 15 ML UDCUP PO ONE (05:58)
[2019-11-20] MEDS ORDERED: METOCLOPRAMIDE HCL ORAL SOLN 10 MG/10 ML UDCUP PO ONE (05:58)
--- NOTE | 2019-11-20 07:38 | EKG REPORT ---
SEVERITY:- ABNORMAL ECG - SINUS TACHYCARDIA RIGHT BUNDLE BRANCH BLOCK AND LEFT POST FASCICULAR BLOCK : Confirmed by: Kyle Mooney MD 20-Nov-2019 07:37:27
[2019-11-20] MEDS ORDERED: PROCHLORPERAZINE EDISYLATE INJ 10 MG/2 ML VIAL IV ONE (07:49)
[2019-11-20 09:29] VITALS: BP 188/79
== END 2019-11-20 09:40 | disposition home or self-care (01) ==
LOC: ER 01:36
DX: Z20.828 Contact with and (suspected) exposure to other viral communicable diseases (principal); R06.6 Hiccough; J95.89 Other postprocedural complications and disorders of respiratory system, not elsewhere classified; I10 Essential (primary) hypertension; E11.65 Type 2 diabetes mellitus with hyperglycemia; Z90.49 Acquired absence of other specified parts of digestive tract; Z88.2 Allergy status to sulfonamides; Z79.82 Long term (current) use of aspirin
CPT/HCPCS: 93005; 99284; 96361; 96374; 96375; 36415; 87040; 83690; 85025; 87635; 80053; 84484; 82803; 71045; 71275; 93010; J3490; J2270; J0780; J2405; J7030